=== PATIENT | female | born 1985 | race African-American/Black ===

== ENCOUNTER 2020-03-23 17:39 | Emergency (ER) | payer SELFPAY ==
[2020-03-23] MEDS ORDERED: Penicillin V Potassium 250 MG TAB ONE (18:22)
[2020-03-23] MEDS ORDERED: Ibuprofen 200 MG TAB ONE (18:22)
== END 2020-03-23 18:25 | disposition home or self-care (01) ==
LOC: NAV ERS 17:39
DX: J02.0 Streptococcal pharyngitis (principal)
CPT/HCPCS: 99283

== ENCOUNTER 2021-01-10 16:12 | Emergency (ER) | payer OTHER, SELFPAY ==
[2021-01-10] MEDS ORDERED: Ibuprofen 800 MG TAB ONE (16:36)
== END 2021-01-10 16:41 | disposition home or self-care (01) ==
LOC: NAV ERS 16:12
DX: S40.022A Contusion of left upper arm, initial encounter (principal); S20.212A Contusion of left front wall of thorax, initial encounter; V89.2XXA Person injured in unspecified motor-vehicle accident, traffic, initial encounter
CPT/HCPCS: 99284